=== PATIENT | female | born 1970 | race Caucasian/White ===

== ENCOUNTER 2016-12-05 05:46 | Day surgery (SDC) | payer MEDICAID ==
[~2016-12-05] VITALS: Ht 142.2 cm; Wt 61.4 kg
[~2016-12-05 05:46] MED LIST: BECL8.7A6 PUFF; BENZ0.5T6 PO; CARB200T6 PO; CETI-260 PO; CITA20TA9 PO; DOCU-174 PO; FAMO20 PO; FLUT16H NASAL; LEVO50 PO; MOME13HF IH; MULT1CAP32 PO; RISP3 PO
[2016-12-05] MEDS ORDERED: SODIUM CHLORIDE 0.9% 1,000 ML IV ONE ×2 (06:05→06:15)
[2016-12-05] MEDS ORDERED: MIDAZOLAM HCL 2 MG/2 ML VIAL ONE (07:56)
[2016-12-05] MEDS ORDERED: FentaNYL CITRATE-PF 100 MCG/2 ML VIAL ONE (07:56)
[2016-12-05] MEDS: MethylPREDNISolone SOD SUCC 125 MG/2 ML VIAL IVP ONE ×2 (09:25→10:00)
[2016-12-05] MEDS ORDERED: MethylPREDNISolone SOD SUCC 125 MG/2 ML VIAL ONE (09:48)
[2016-12-05] MEDS ORDERED: EPINEPHrine 1:1,000 [1 MG/ML] AMP SQ ONE (10:00)
[2016-12-05] MEDS ORDERED: ALBUTEROL SULFATE 2.5 MG/0.5 ML NEB SOLUTION NEB ONE (10:00)
[2016-12-05] MEDS ORDERED: LIDOCAINE HCL 4% 50 ML SOLUTION TP ONE (10:00)
[2016-12-05] MEDS ORDERED: LIDOCAINE HCL 2% 30 ML JELLY TP ONE (10:00)
[2016-12-05] MEDS ORDERED: BENZOCAINE 20% 50 MCG/SPRAY 57 GM TP ONE (10:00)
[2016-12-05] MEDS ORDERED: OXYGEN THERAPY IH SCH (20:00)
== END 2016-12-05 11:00 | disposition home or self-care (01) ==
LOC: SURGERY 05:46
PROVIDERS: ATTEND Internal Medicine Critical Care Medicine
DX: J38.4 Edema of larynx (principal); B37.0 Candidal stomatitis; J45.909 Unspecified asthma, uncomplicated; G40.909 Epilepsy, unspecified, not intractable, without status epilepticus; Z87.01 Personal history of pneumonia (recurrent)
CPT/HCPCS: 31623; 31624; 71010; 84703; 87015 ×2; 87070; 87101; 87205; 87220; 88108; 88312; J0171; J2250; J2930; J3010; J7030

== ENCOUNTER 2019-01-14 07:06 | Day surgery (SDC) | payer MEDICARE, MEDICAID ==
[~2019-01-14] VITALS: Ht 139.7 cm; Wt 54.5 kg
[~2019-01-14 07:06] MED LIST changes: +BENZ0.5T44 PO; -BENZ0.5T6 PO; -CETI-260 PO; +CETI10TA59 PO; +CITA-106 PO; -CITA20TA9 PO; -DOCU-174 PO; +DOCU100C33 PO; +SODIUM CHLORIDE 0.9% 1,000 ML IV ONE
[2019-01-14] MEDS ORDERED: LIDOCAINE 2% 30 ML JELLY TP ONE (07:07)
[2019-01-14] MEDS ORDERED: BENZOCAINE 20% 50 MCG/SPRAY 57 GM TP ONE (07:07)
[2019-01-14] MEDS ORDERED: ALBUTEROL SULFATE 2.5 MG/0.5 ML NEB SOLUTION NEB ONE (07:07)
[2019-01-14] MEDS ORDERED: ALBU8HFA PO (07:33)
[2019-01-14] MEDS ORDERED: MONT10TA21 PO (07:33)
[2019-01-14] MEDS ORDERED: PRED10 PO (07:33)
[2019-01-14] MEDS ORDERED: RANI150T7 PO (07:33)
[2019-01-14] MEDS ORDERED: LEVO500 PO (07:33)
[2019-01-14] MEDS ORDERED: FLUT1BLS IH (07:33)
[2019-01-14] MEDS ORDERED: MIDAZOLAM HCL 2 MG/2 ML VIAL ONE (08:09)
[2019-01-14] MEDS ORDERED: FentaNYL CITRATE-PF 100 MCG/2 ML VIAL ONE (08:09)
[2019-01-14] MEDS ORDERED: MethylPREDNISolone SOD SUCC 125 MG/2 ML VIAL IVP ONE (09:00)
[2019-01-14] MEDS ORDERED: MethylPREDNISolone SOD SUCC 125 MG/2 ML VIAL ONE (09:55)
[2019-01-14] MEDS ORDERED: OXYGEN THERAPY IH SCH (20:00)
== END 2019-01-14 10:55 | disposition home or self-care (01) ==
LOC: SURGERY 07:06
PROVIDERS: ATTEND Internal Medicine Critical Care Medicine
DX: J38.4 Edema of larynx (principal); B37.0 Candidal stomatitis; F32.9 Major depressive disorder, single episode, unspecified; Z87.01 Personal history of pneumonia (recurrent); Z98.890 Other specified postprocedural states
CPT/HCPCS: 31623; 31624; 71045; 84703; 87015; 87070; 87101; 87205; 87206; 87220; 88112; 88312; J2250; J2930; J3010; J7030